=== PATIENT | female | born 1940 | race Caucasian/White ===

== ENCOUNTER 2017-01-12 11:24 | Emergency (ER) | payer OTHER, MEDICARE ==
[~2017-01-12] VITALS: Ht 144.8 cm; Wt 78.1 kg
[~2017-01-12 11:24] MED LIST: AMB10 PO; ASPI81TA28 PO; ATOR-22 PO; DICL1GEL28 TD; DTR/5 PO; HYDR-3983 PO; MECL1TAB42 PO; METO50TA16 PO; PRED1SUS3 OPL; SERT-234 PO
[2017-01-12 11:26] VITALS: TEMP 36.7; Ht 144.8 cm; Wt 78.1 kg
[2017-01-12] MEDS ORDERED: DENO60SO SQ (11:42)
[2017-01-12] MEDS ORDERED: METO-217 PO (11:42)
[2017-01-12] MEDS ORDERED: ZOLP10TA PO (11:42)
[2017-01-12] MEDS ORDERED: MoRPHine SULFATE 4 MG/ML 1 ML CARP\\VIAL IV STA (12:20)
--- NOTE | 2017-01-12 13:01 | DIAGNOSTIC IMAGING REPORT ---
HEAD CT NONCONTRAST CT DOSE: 1380.10 mGycm HISTORY: left sided head numbness TECHNIQUE: Multiaxial CT images of the head were performed without the use of intravenous contrast. Automated exposure control was utilized for this study. Comparison: Brain MRI 12/01/2014. Findings: The paranasal sinuses and mastoid air cells are clear. The calvarium and skull base are intact. There is no mass, hematoma, midline shift, acute infarct. White matter hypodensity is nonspecific but suggestive of microvascular ischemic change. The ventricles and sulci demonstrate mild age-related involutional changes. Questionable hypodensity near the periphery of the left cerebral hemisphere is likely due to volume averaging with the adjacent extra-axial space. Impression: No acute intracranial abnormality. Electronically signed by: Geovani Sotelo M.D. 01/12/2017 12:59 PM Dictated Date/Time: 01/12/2017 12:55 PM
--- NOTE | 2017-01-12 13:14 | DIAGNOSTIC IMAGING REPORT ---
CERVICAL SPINE CT CT DOSE: 380.73 mGycm HISTORY: left sided neck pain, head numbness, hx neck surgery TECHNIQUE: Multiaxial CT images of the cervical spine were performed and reformatted in the sagittal and coronal plane without the use of contrast. COMPARISON: CT neck 02/23/2015. FINDINGS: Alignment is intact. Anterior cervical discectomy and fusion at C4-C5. The vertebral bodies and facets at this level are fused. The hardware appears intact. There is mild right and moderate left facet osteoarthritis throughout the majority of the cervical spine. Mild disc space narrowing at C2-C3 and C3-C4. Prevertebral soft tissues and the C1-C2 interval are intact. No pneumothorax. Mild superior endplate compression deformity at C6. This is new from the prior studies but technically age indeterminate. No associated retropulsion. There is approximately 10% loss of height anteriorly. IMPRESSION: Mild superior endplate compression deformity at C6 which is new from the prior studies but technically age indeterminate. There is no paravertebral soft tissue swelling at this time to suggest an acute fracture. Therefore, this favors an old fracture. Electronically signed by: Geovani Sotelo M.D. 01/12/2017 1:13 PM Dictated Date/Time: 01/12/2017 1:05 PM
[2017-01-12 13:28] LABS: BASO % 0.5 %; BASO ABS # 0.03 K/uL (0-0.2); COMPLETE YES; EOS % 1.3 %; HEMATOCRIT 40.5 % (37-47); IG% 0.2 %; LYMPH % 48.1 %; LYMPH ABS # 2.91 K/uL (1.2-3.4); MEAN CELL VOLUME 92.5 fL (80-100); MEAN CORPUSCULAR HEMOGLOBIN 31.5 pg (25-34); MEAN CORPUSCULAR HGB CONC 34.1 g/dl (32-36); MEAN PLATELET VOLUME 9.8 fL (7.4-10.4); MONO % 7.9 %; PLATELET COUNT 151 K/uL (130-400); RED BLOOD COUNT 4.38 M/uL (4.2-5.4); WHITE BLOOD COUNT 6.05 K/uL (4.8-10.8)
[2017-01-12 13:37] LABS: BUN/CREATININE RATIO 17.3 (10-20); CREATININE 0.85 mg/dl (0.60-1.20)
[2017-01-12 13:40] LABS: ALB/GLOB RATIO 1.1 (0.9-2)
[2017-01-12] MEDS ORDERED: HYDR-3983 PO (13:56)
--- NOTE | 2017-01-12 13:56 | EMERGENCY ROOM VISIT NOTE ---
History First contact with patient: 12:08 Chief Complaint: PAIN (GENERALIZED) Stated Complaint: PAIN, DIZZY History of Present Illness The patient is a 76 year old female who presents to the Emergency Room with complaints of left-sided neck pain. The patient states that she had a neck surgery 10 years ago and has had pain in the side of the neck since then. She reports the pain occasionally flares up. She states the left side of the neck feels swollen. She also reports numbness in the left side of her head, which is also chronic for her. She saw her surgeon, who gave her topical Voltaren but states this is too expensive. She is prescribed hydrocodone by her primary care provider and takes this with some relief of the pain. She states that she is out of her prescription for the month. She reports it is painful to lay her head on the left side. She states the pain flares up every few weeks. She has a history of osteoporosis. She denies any new injuries, headache or syncopal episodes. She denies any new onset of numbness or weakness. Review of Systems A complete 10 point review of systems was reviewed with the patient with pertinent positives and negatives as per history of present illness. All else were negative. Social History Smoking Status: Never Smoker Current/Historical Medications Scheduled Atorvastatin (Lipitor), 20 MG PO QPM Denosumab (Prolia), 60 MG SQ [id number] Metoprolol Succinate (Toprol Xl), 25 MG PO DAILY Sertraline (Zoloft), 200 MG PO HS Zolpidem Tartrate (Ambien), 5-10 MG PO HS Scheduled PRN Hydrocodone/Acetaminophen 7.5MG/325MG ([place] 7.5MG/325MG), 1 TAB PO Q6WK PRN for Pain Hydrocodone/Acetaminophen 7.5MG/325MG ([place] 7.5MG/325MG), 1 TAB PO Q6H PRN for Pain Meclizine Hcl (Meclizine Hcl), 1 TAB PO TID PRN for DIZZINESS Allergies Coded Allergies: Adhesives (Unverified Allergy, Unknown, SKIN IRRITATION, 01/12/17) Sulfa Antibiotics (Verified Allergy, Unknown, HIVES, 01/12/17) Celecoxib (Unverified Adverse Reaction, Severe, UPSET STOMACH, 01/12/17) Gabapentin (Unverified Adverse Reaction, Intermediate, FELT WEIRD, 01/12/17 ) Meloxicam (Unverified Adverse Reaction, Intermediate, UPSET STOMACH, ) Physical Exam Vital Signs Date Time Temp Pulse Resp B/P Pulse Ox O2 Delivery O2 Flow Rate FiO2 01/12/17 14:13 59 16 142/82 95 01/12/17 13:25 52 22 131/68 96 Room Air 01/12/17 11:26 36.7 63 20 132/74 94 Room Air Physical Exam VITALS: Vitals are noted on the nurse's note and reviewed by myself. Vital signs stable. GENERAL: This is a 76-year-old female, in no acute distress, nondiaphoretic, well-developed well-nourished. SKIN: Capillary reflex less than 2 seconds. HEENT: Normocephalic. PERRLA. EOMI. Nares patent. Mucous membranes moist. Neck is supple without nuchal rigidity. HEART: Regular rate and rhythm without murmurs gallops or rubs. LUNGS: Clear to auscultation bilaterally without wheezes, rales or rhonchi. No retractions or accessory muscle use. MUSCULOSKELETAL: There is tenderness of the left cervical paraspinous muscles. Full range of motion of the neck. No tenderness over the cervical spinous processes. NEURO: Patient was alert and oriented to person place and time. Numbness over the left parietal region, otherwise normal sensation to light and sharp touch. No focal neurological deficits. Medical Decision & Procedures ER Provider Diagnostic Interpretation: HEAD CT NONCONTRAST Findings: The paranasal sinuses and mastoid air cells are clear. The calvarium and skull base are intact. There is no mass, hematoma, midline shift, acute infarct. White matter hypodensity is nonspecific but suggestive of microvascular ischemic change. The ventricles and sulci demonstrate mild age-related involutional changes. Questionable hypodensity near the periphery of the left cerebral hemisphere is likely due to volume averaging with the adjacent extra-axial space. Impression: No acute intracranial abnormality. CERVICAL SPINE CT FINDINGS: Alignment is intact. Anterior cervical discectomy and fusion at C4-C5. The vertebral bodies and facets at this level are fused. The hardware appears intact. There is mild right and moderate left facet osteoarthritis throughout the majority of the cervical spine. Mild disc space narrowing at C2-C3 and C3-C4. Prevertebral soft tissues and the C1-C2 interval are intact. No pneumothorax. Mild superior endplate compression deformity at C6. This is new from the prior studies but technically age indeterminate. No associated retropulsion. There is approximately 10% loss of height anteriorly. IMPRESSION: Mild superior endplate compression deformity at C6 which is new from the prior studies but technically age indeterminate. There is no paravertebral soft tissue swelling at this time to suggest an acute fracture. Therefore, this favors an old fracture. Laboratory Results 01/12/17 11:45 Red Blood Count 4.38, Mean Corpuscular Volume 92.5, Mean Corpuscular Hemoglobin 31.5, Mean Corpuscular Hemoglobin Concent 34.1, Mean Platelet Volume 9.8, Neutrophils (%) (Auto) 42.0, Lymphocytes (%) (Auto) 48.1, Monocytes (%) (Auto) 7.9, Eosinophils (%) (Auto) 1.3, Basophils (%) (Auto) 0.5, Neutrophils # (Auto) 2.54, Lymphocytes # (Auto) 2.91, Monocytes # (Auto) 0.48, Eosinophils # (Auto) 0.08, Basophils # (Auto) 0.03 01/12/17 11:45 Test 01/12/17 11:45 White Blood Count 6.05 K/uL (4.8-10.8) Red Blood Count 4.38 M/uL (4.2-5.4) Hemoglobin 13.8 g/dL (12.0-16.0) Hematocrit 40.5 % (37-47) Mean Corpuscular Volume 92.5 fL (80-100) Mean Corpuscular Hemoglobin 31.5 pg (25-34) Mean Corpuscular Hemoglobin Concent 34.1 g/dl (32-36) Platelet Count 151 K/uL (130-400) Mean Platelet Volume 9.8 fL (7.4-10.4) Neutrophils (%) (Auto) 42.0 % Lymphocytes (%) (Auto) 48.1 % Monocytes (%) (Auto) 7.9 % Eosinophils (%) (Auto) 1.3 % Basophils (%) (Auto) 0.5 % Neutrophils # (Auto) 2.54 K/uL (1.4-6.5) Lymphocytes # (Auto) 2.91 K/uL (1.2-3.4) Monocytes # (Auto) 0.48 K/uL (0.11-0.59) Eosinophils # (Auto) 0.08 K/uL (0-0.5) Basophils # (Auto) 0.03 K/uL (0-0.2) RDW Standard Deviation 46.2 fL (36.4-46.3) RDW Coefficient of Variation 13.6 % (11.5-14.5) Immature Granulocyte % (Auto) 0.2 % Immature Granulocyte # (Auto) 0.01 K/uL (0.00-0.02) Anion Gap 6.0 mmol/L (3-11) Est Creatinine Clear Calc Drug Dose 48.4 ml/min Estimated GFR () 77.1 Estimated GFR (Non- 66.6 BUN/Creatinine Ratio 17.3 (10-20) Calcium Level 9.0 mg/dl (8.5-10.1) Total Bilirubin 0.4 mg/dl (0.2-1) Aspartate Amino Transf (AST/SGOT) 26 U/L (15-37) Alanine Aminotransferase (ALT/SGPT) 23 U/L (12-78) Alkaline Phosphatase 93 U/L (45-117) Total Protein 7.4 gm/dl (6.4-8.2) Albumin 3.8 gm/dl (3.4-5.0) Globulin 3.6 gm/dl (2.5-4.0) Albumin/Globulin Ratio 1.1 (0.9-2) Medications Administered Medications (Trade) Dose Ordered Sig/Vinny Route Start Time Stop Time Status Last Admin Dose Admin Morphine Sulfate (MoRPHine SULFATE INJ) 4 mg NOW STAT IV 01/12/17 12:20 01/12/17 12:21 DC 01/12/17 12:29 4 MG ED Course The patient was evaluated as above. Labs were drawn and IV access was obtained. Patient was medicated with [address] of the head and neck was performed and read by radiology as above. Patient was reevaluated and stated her pain had improved. Findings were discussed with the patient. Discharge instructions were reviewed with the patient. The patient verbalized understanding of my assessment and treatment plan and was discharged home in good condition. Medical Decision Differential diagnosis includes chronic neck pain, acute compression fracture, herniated disc, musculoskeletal pain, infection, among others. The patient is a 76-year-old female who presents today complaining of left neck pain. The patient does admit to chronic neck pain which flares up occasionally. She has had this for the past 10 years, after a neck surgery. She also reports that the numbness on the top of her head is chronic for her and she has had it for 10 years and has been previously evaluated by her surgeon for this. The patient recently ran out of her pain medication for this month. CT of the head was unremarkable. CT of the neck showed what appears to be an old compression fracture with no acute findings. Patient's neurovascular status is intact on examination. Review of the PDMP does show that the patient receives monthly prescriptions of [place] 7.5/325 from her primary care provider. In the past year, she has received no narcotic prescriptions from other providers. I do feel it is reasonable to provide patient with a very short course of [place] until she is able to follow up with her primary care provider again. Additionally, she was referred back to her surgeon for further follow- up. The patient was independently evaluated by Dr. Garcia, ED attending physician, who agreed with my assessment and treatment plan. Based on the patient's presentation and work up, I feel the patient is stable for outpatient treatment. The patient was educated to return to the emergency department for any worsening of their current condition or new/concerning symptoms. She will follow up with her PCP and surgeon. [place] Drug Monitoring [place] Search Results: patient reviewed within database (patient receives monthly prescriptions from her primary care provider, she has not received controlled prescriptions or any other providers in the past one year) Impression Primary Impression: Chronic neck pain Departure Information Dispostion Home / Self-Care Condition GOOD Prescriptions Hydrocodone/Acetaminophen 7.5MG/325MG ([place] 7.5MG/325MG) Tab 1 TAB PO Q6H Y for Pain, #12 TAB For Initial Treatment Prov: Isha Tobias .SHAGGY 01/12/17 Referrals Christophe Walker M.D. (PCP) Patient Instructions My [facility] Additional Instructions You have been prescribed [place] to be used for pain control. Take 1 tablet every 6 hours as needed for pain. This is a narcotic medication. You cannot drive or consume alcohol while on this medicine. This medicine should only be used for pain that cannot be controlled with [id number] pain medicines. Follow-up with Dr. Walker or your surgeon for further evaluation of your chronic neck pain.
--- NOTE | 2017-01-12 14:01 | EMERGENCY ROOM VISIT NOTE ---
ED Visit Note First contact with patient: 12:08 Staff note: I have reviewed the Patients chart and have discussed this case with my PA. I generally agree with the ED note and findings.
[2017-01-12 14:13] VITALS: BP 142/82; PULSE 59; O2SAT 95
== END 2017-01-12 14:14 | disposition home or self-care (01) ==
LOC: C.EDB 11:25 → C.EDA 14:14
DX: M54.2 Cervicalgia (principal); G89.29 Other chronic pain; M81.0 Age-related osteoporosis without current pathological fracture; Z79.899 Other long term (current) drug therapy

== ENCOUNTER → 2017-02-13 | Outpatient (CLI) | payer OTHER, MEDICARE ==
[~2017-02-13] MED LIST changes: -AMB10 PO; -ASPI81TA28 PO; +DENO60SO SQ; -DICL1GEL28 TD; -DTR/5 PO; +METO-217 PO; -METO50TA16 PO; -PRED1SUS3 OPL; +ZOLP10TA PO
[2017-02-13 18:39] LABS: ALT/SGPT 24 U/L (12-78); AST/SGOT 25 U/L (15-37); BLOOD UREA NITROGEN 14 mg/dl (7-18); BUN/CREATININE RATIO 17.1 (10-20); CALCIUM 9.4 mg/dl (8.5-10.1); CARBON DIOXIDE 28 mmol/L (21-32); CHLORIDE 106 mmol/L (98-107); CREATININE 0.83 mg/dl (0.60-1.20); GLUCOSE 82 mg/dl (70-99); POTASSIUM 4.1 mmol/L (3.5-5.1); SODIUM 141 mmol/L (136-145)
[2017-02-13 18:50] LABS: CHOLESTEROL 143 mg/dl (0-200); HDL CHOLESTEROL 71 mg/dl; LDL CHOLESTEROL CALCULATED 53 mg/dl; TRIGLYCERIDES 97 mg/dl (0-150); VERY LOW DENSITY LIPOPROT CALC 19 mg/dl
== END | disposition home or self-care (01) ==
LOC: C.LABMFLN 12:27
PROVIDERS: ATTEND Family Medicine
DX: I10 Essential (primary) hypertension (principal); E78.00 Pure hypercholesterolemia, unspecified; E53.8 Deficiency of other specified B group vitamins; I25.10 Atherosclerotic heart disease of native coronary artery without angina pectoris; M81.0 Age-related osteoporosis without current pathological fracture; G62.9 Polyneuropathy, unspecified

== ENCOUNTER → 2017-08-17 | Outpatient (CLI) | payer OTHER, MEDICARE ==
[2017-08-17 13:11] LABS: ALT/SGPT 24 U/L (12-78); AST/SGOT 28 U/L (15-37); BLOOD UREA NITROGEN 15 mg/dl (7-18); BUN/CREATININE RATIO 18.2 (10-20); CALCIUM 9.1 mg/dl (8.5-10.1); CARBON DIOXIDE 28 mmol/L (21-32); CHLORIDE 106 mmol/L (98-107); CREATININE 0.83 mg/dl (0.60-1.20); GLUCOSE 82 mg/dl (70-99); POTASSIUM 4.1 mmol/L (3.5-5.1); SODIUM 138 mmol/L (136-145)
[2017-08-17 13:13] LABS: ALB/GLOB RATIO 0.9 (0.9-2); ALKALINE PHOSPHATASE 87 U/L (45-117); CHOLESTEROL 140 mg/dl (0-200); CHOLESTEROL/HDL RATIO 1.8; HDL CHOLESTEROL 80 mg/dl; LDL CHOLESTEROL CALCULATED 44 mg/dl; TRIGLYCERIDES 82 mg/dl (0-150); VERY LOW DENSITY LIPOPROT CALC 16 mg/dl
== END | disposition home or self-care (01) ==
LOC: C.LABMFLN 09:32
PROVIDERS: ATTEND Family Medicine
DX: I10 Essential (primary) hypertension (principal); E78.00 Pure hypercholesterolemia, unspecified; E04.2 Nontoxic multinodular goiter; E53.8 Deficiency of other specified B group vitamins; E55.9 Vitamin D deficiency, unspecified; R22.0 Localized swelling, mass and lump, head

== ENCOUNTER → 2017-10-25 | Outpatient (CLI) | payer OTHER, MEDICARE | END | disposition home or self-care (01) | LOC: C.LABMFLN 15:44 | PROVIDERS: ATTEND Family Medicine | DX: R51 Headache (principal) ==

== ENCOUNTER → 2017-12-01 | Outpatient (CLI) | payer OTHER, MEDICARE ==
--- NOTE | 2017-12-01 14:30 | DIAGNOSTIC IMAGING REPORT ---
ULTRASOUND GUIDED FINE-NEEDLE ASPIRATION OF 1.5 CM NODULE ADJACENT TO RIGHT SUBMANDIBULAR GLAND AND A RIGHT LEVEL 2 CERVICAL LYMPH NODE CLINICAL HISTORY: Mass of submandibular region COMPARISON STUDY: Neck ultrasound November 16, 2017. PROCEDURE: Sonography of the neck demonstrated a 1.5 cm nodule adjacent to the right submandibular gland. In addition, an elongated right level 2 node measuring 2.7 x 0.5 x 1.1 cm was noted. These were both targeted for fine needle aspiration. Procedure, risks and benefits were discussed with the patient. The patient agreed to the procedure and informed written consent was obtained. The procedure was performed by Dr. Mathews following a timeout. Skin was prepped and draped in sterile fashion and local anesthesia was achieved with 1% lidocaine. Under direct ultrasound guidance, 3 25-gauge fine needle aspirations of the 1.5 cm nodule and the lymph node located lateral to the nodule were performed. Samples were deemed preliminarily adequate by pathology. The patient tolerated the procedure well and no immediate complications were evident. IMPRESSION: Successful ultrasound guided fine needle aspiration of 1.5 cm nodule adjacent to the right submandibular gland and an adjacent right level 2 cervical lymph node. Electronically signed by: Gianfranco Mathews M.D. 12/01/2017 2:29 PM Dictated Date/Time: 12/01/2017 2:27 PM
== END | disposition home or self-care (01) ==
LOC: C.ULTR 12:10
DX: R22.0 Localized swelling, mass and lump, head (principal)

== ENCOUNTER → 2018-01-04 | Outpatient (CLI) | payer OTHER, MEDICARE ==
[2018-01-04 17:43] LABS: BASO % 0.3 %; BASO ABS # 0.02 K/uL (0-0.2); EOS % 1.1 %; EOS ABS # 0.07 K/uL (0-0.5); HEMATOCRIT 39.7 % (37-47); HEMOGLOBIN 13.6 g/dL (12.0-16.0); IG# 0.01 K/uL (0.00-0.02); LYMPH % 43.1 %; LYMPH ABS # 2.64 K/uL (1.2-3.4); MEAN CELL VOLUME 91.3 fL (80-100); MEAN CORPUSCULAR HEMOGLOBIN 31.3 pg (25-34); MEAN CORPUSCULAR HGB CONC 34.3 g/dl (32-36); MEAN PLATELET VOLUME 10.1 fL (7.4-10.4); MONO % 8.6 %; MONO ABS # 0.53 K/uL (0.11-0.59); NEUT % 46.7 %; NEUT ABS # 2.86 K/uL (1.4-6.5); PLATELET COUNT 147 K/uL (130-400); RED CELL DISTRIBUTION WIDTH CV 14.2 % (11.5-14.5); RED CELL DISTRIBUTION WIDTH SD 47.6 fL (36.4-46.3); WHITE BLOOD COUNT 6.13 K/uL (4.8-10.8)
[2018-01-04 18:14] LABS: ALBUMIN 3.8 gm/dl (3.4-5.0); ALKALINE PHOSPHATASE 96 U/L (45-117); ALT/SGPT 23 U/L (12-78); AST/SGOT 32 U/L (15-37); BLOOD UREA NITROGEN 14 mg/dl (7-18); CALCIUM 8.9 mg/dl (8.5-10.1); CARBON DIOXIDE 28 mmol/L (21-32); CHOLESTEROL 150 mg/dl (0-200); CREATININE 0.79 mg/dl (0.60-1.20); GLUCOSE 97 mg/dl (70-99); LDL CHOLESTEROL CALCULATED 59 mg/dl; POTASSIUM 3.9 mmol/L (3.5-5.1); SODIUM 140 mmol/L (136-145); TOTAL PROTEIN 7.7 gm/dl (6.4-8.2)
== END | disposition home or self-care (01) ==
LOC: C.LABMFLN 11:40
PROVIDERS: ATTEND Family Medicine
DX: I10 Essential (primary) hypertension (principal); E78.00 Pure hypercholesterolemia, unspecified; E53.8 Deficiency of other specified B group vitamins; M81.0 Age-related osteoporosis without current pathological fracture; E55.9 Vitamin D deficiency, unspecified